=== PATIENT | female | born 1970 | race Two or more races ===

== ENCOUNTER 2018-09-07 06:34 | Day surgery (SDC) | payer OTHER ==
[~2018-09-07] VITALS: Ht 162.6 cm; Wt 91.6 kg
[2018-09-07 07:27] VITALS: BP 127/70
[2018-09-07 15:33] VITALS: BP 111/66
== END 2018-09-07 10:55 | disposition home or self-care (01) ==
LOC: DS 06:34 → GI 08:00 → OR 08:00 → DS 10:55
DX: K63.5 Polyp of colon (principal); K64.8 Other hemorrhoids; E11.9 Type 2 diabetes mellitus without complications; G47.30 Sleep apnea, unspecified; F41.9 Anxiety disorder, unspecified; Z80.3 Family history of malignant neoplasm of breast; Z88.8 Allergy status to other drugs, medicaments and biological substances; Z91.040 Latex allergy status; Z79.899 Other long term (current) drug therapy; Z86.73 Personal history of transient ischemic attack (TIA), and cerebral infarction without residual deficits; Z85.858 Personal history of malignant neoplasm of other endocrine glands; Z92.21 Personal history of antineoplastic chemotherapy; Z98.51 Tubal ligation status; Z79.4 Long term (current) use of insulin
CPT/HCPCS: 45378; J1200; J1610; J2250; J2310; J3010; J3490